=== PATIENT | male | born 1960 | race Caucasian/White ===

== ENCOUNTER 2017-12-07 13:48 | Inpatient (IN) | payer OTHER ==
[~2017-12-07] VITALS: Ht 177.8 cm; Wt 105.7 kg
[~2017-12-07 13:48] MED LIST: Aspirin PO; CRESTOR40 MG PO
[2017-12-07 14:50] LABS: HEMATOCRIT 41.1 % (38.0-50.0); HEMOGLOBIN 13.9 G/DL (12.5-16.6); MCH 29.3 PG (29.0-34.0); MCHC 33.8 G/DL (30.0-36.0); MCV 86.5 FL (86-99); PLATELET COUNT 274 K/uL (156-360); RBC DIS.WIDTH-CV 13.1 % (11.8-14.6); RBC DIS.WIDTH-SD 41.2 % (39-53); RED BLOOD COUNT 4.75 M/uL (4.00-5.50)
[2017-12-07 15:08] LABS: CHLORIDE 108 mEq/L (99-109); POTASSIUM 4.1 mEq/L (3.7-5.4); SODIUM 140 mEq/L (136-147)
[2017-12-07 15:10] LABS: GLUCOSE 106 mg/dL (70-99)
[2017-12-07 15:14] LABS: CREATININE 1.1 mg/dL (0.6-1.3); GFR ESTIMATE (CALCULATED) > 59 mL/min/ (58.99-99999)
[2017-12-07 15:15] LABS: UREA NITROGEN (BUN) 21 mg/dL (9-23)
[2017-12-07 15:16] LABS: TROP-I INTERPRETATION INDETERMINATE; TROPONIN-I 0.41 ng/mL (0.0-0.30)
[2017-12-07 16:47] LABS: INTER. NORMALIZED RATIO 1.1
[2017-12-07 16:49] LABS: PTT 28.2 SEC (25-37)
[2017-12-07 17:33] LABS: HDL CHOLESTEROL 58 MG/DL (Desirable>=40); LDL CHOLESTEROL 124 mg/dL (Desirable<100); NON-HDL CHOLESTEROL 141 mg/dL (Desirable<160); TOTAL CHOLESTEROL 199 mg/dL (Desirable<200); TRIGLYCERIDES 85 MG/DL (Normal: <150)
[2017-12-07 19:30] VITALS: BP 136/72
[2017-12-07 19:32] LABS: TROP-I INTERPRETATION POSITIVE
[2017-12-07 19:35] LABS: TROPONIN-I 10.96 ng/mL (0.0-0.30)
[2017-12-07] MEDS ORDERED: OXYCODONE-ACET1 EACH PO (19:47)
[2017-12-07] MEDS ORDERED: LYRICA75 MG PO (19:47)
[2017-12-07] MEDS ORDERED: CYCLOBENZAPRINE10 MG PO (19:48)
[2017-12-07] MEDS ORDERED: METHOCARBAMOL750 MG PO (19:48)
[2017-12-07 22:22] VITALS: BP 126/78
[2017-12-08] VITALS (7 sets, daily range): BP systolic 112–156; BP diastolic 62–87
[2017-12-08 00:42] LABS: INTER. NORMALIZED RATIO 1.1
[2017-12-08 00:50] LABS: PTT 60.9 SEC (25-37)
[2017-12-08 00:57] LABS: TROP-I INTERPRETATION POSITIVE
[2017-12-08 00:58] LABS: TROPONIN-I 11.48 ng/mL (0.0-0.30)
[2017-12-08 06:17] LABS: TROP-I INTERPRETATION POSITIVE; TROPONIN-I 8.37 ng/mL (0.0-0.30)
[2017-12-08 06:21] LABS: CHLORIDE 107 MEQ/L (99-109); CREATININE 1.1 MG/DL (0.6-1.3); GFR ESTIMATE (CALCULATED) > 59 mL/min/ (58.99-99999); GLUCOSE 96 mg/dL (70-99); POTASSIUM 4.3 MEQ/L (3.7-5.4); SODIUM 142 MEQ/L (136-147); UREA NITROGEN (BUN) 18 mg/dL (9-23)
[2017-12-08 10:56] LABS: HEMOGLOBIN A1c (GLYCOHEMOGLOB) 5.3 % (Below 5.7)
[2017-12-09 05:38] VITALS: BP 117/75
[2017-12-09 08:18] VITALS: BP 105/71
[2017-12-09 09:14] LABS: TROP-I INTERPRETATION POSITIVE; TROPONIN-I 2.14 ng/mL (0.0-0.30)
[2017-12-09 11:29] VITALS: BP 120/77
[2017-12-09 16:12] VITALS: BP 111/67
[2017-12-09 19:00] VITALS: BP 119/71
[2017-12-09 23:00] VITALS: BP 134/82
[2017-12-10 04:45] VITALS: BP 111/57
[2017-12-10 05:21] LABS: HEMATOCRIT 38.3 % (38.0-50.0); HEMOGLOBIN 12.7 G/DL (12.5-16.6); MCH 28.7 PG (29.0-34.0); MCHC 33.2 G/DL (30.0-36.0); MCV 86.5 FL (86-99); PLATELET COUNT 229 K/uL (156-360); RBC DIS.WIDTH-CV 13.2 % (11.8-14.6); RBC DIS.WIDTH-SD 41.7 % (39-53); RED BLOOD COUNT 4.43 M/uL (4.00-5.50)
[2017-12-10 05:22] LABS: INTER. NORMALIZED RATIO 1.1
[2017-12-10 05:39] LABS: PTT 28.1 SEC (25-37)
[2017-12-10 05:42] LABS: TROP-I INTERPRETATION POSITIVE; TROPONIN-I 1.52 ng/mL (0.0-0.30)
[2017-12-10 05:44] LABS: CHLORIDE 105 MEQ/L (99-109); CREATININE 1.2 MG/DL (0.6-1.3); GFR ESTIMATE (CALCULATED) > 59 mL/min/ (58.99-99999); GLUCOSE 86 mg/dL (70-99); POTASSIUM 4.1 MEQ/L (3.7-5.4); SODIUM 140 MEQ/L (136-147); UREA NITROGEN (BUN) 21 mg/dL (9-23)
[2017-12-10 08:25] VITALS: BP 134/86
[2017-12-10] MEDS ORDERED: ASPIR-LOW81 MG PO (11:27)
[2017-12-10] MEDS ORDERED: CLOPIDOGREL75 MG PO (11:27)
[2017-12-10] MEDS ORDERED: LOPRESSOR25 MG PO (11:27)
[2017-12-10] MEDS ORDERED: LOSARTAN POTASS25 MG PO (11:27)
[2017-12-10 15:46] VITALS: BP 118/77
[2017-12-10 16:25] VITALS: BP 123/79
[2017-12-10 16:27] VITALS: BP 118/77
[2017-12-10 16:36] VITALS: BP 112/77
== END 2017-12-10 18:26 | disposition home or self-care (01) | DRG 282 ==
LOC: EME 13:48 → EDOF 16:31 → 4EAST 16:31 → ENRESERV 16:36 → 4EAST 19:23
PROVIDERS: Family Medicine; Internal Medicine; Physician Assistant
DX: I21.4 Non-ST elevation (NSTEMI) myocardial infarction (principal); E78.5 Hyperlipidemia, unspecified; I25.10 Atherosclerotic heart disease of native coronary artery without angina pectoris; G89.29 Other chronic pain; E66.9 Obesity, unspecified; K59.00 Constipation, unspecified; I25.119 Atherosclerotic heart disease of native coronary artery with unspecified angina pectoris; M54.9 Dorsalgia, unspecified; Z82.49 Family history of ischemic heart disease and other diseases of the circulatory system; Z95.5 Presence of coronary angioplasty implant and graft; Z98.1 Arthrodesis status; Z90.49 Acquired absence of other specified parts of digestive tract; Z79.82 Long term (current) use of aspirin; Z68.33 Body mass index [BMI] 33.0-33.9, adult; I25.2 Old myocardial infarction
CPT/HCPCS: 71046; 80048; 80061; 83036; 83735; 84484; 85027; 85610; 85730; 93005; 99281; 99285; C1769; C1887; J1200; J1644; J2250; J3010; J3246; J7040